=== PATIENT | male | born 1960 | race African-American/Black ===

== ENCOUNTER 2021-05-27 19:40 | Inpatient (IN) | payer BC ==
[2021-05-27 19:56] LABS: #Eosinphils 0.4 thou/uL (0.0-0.7); #Lymphocytes 1.9 thou/uL (1.20-3.40); #Monocytes 0.9 thou/uL (0.11-0.59); #Neutrophils 9.8 thou/uL (1.40-6.50); %Basophils 0.3 % (0.0-1.0); %Eosinophils 3.3 % (0.0-10.0); %Lymphocytes 14.3 % (21.0-51.0); %Monocytes 6.9 % (0.0-10.0); %Neutrophils 75.3 % (42.0-75.0); Mean Corpuscular Hemoglobin 30.5 pg (27.0-31.0); Mean Corpuscular Volume 92.7 fL (78.0-98.0); Mean Platelet Volume 7.6 fL (7.4-10.4); Platelet Count 277 thou/uL (130-400); RBC Distribution Width 13.8 % (11.5-14.5); Red Blood Cell (RBC) Count 5.23 mill/uL (4.70-6.10)
[2021-05-27 20:10] LABS: INR-International Normal Ratio 0.9; PTT 25.5 sec (22.9-36.1); Prothrombin Time 12.3 sec (12.0-14.7)
[2021-05-27 20:19] LABS: ALT (SGPT) 24 U/L (8-55); AST (SGOT) 22 U/L (5-34); Albumin 3.7 g/dL (3.4-4.8); Alkaline Phosphatase 39 U/L (40-110); Anion Gap 17 mmol/L (10-20); BUN (Urea Nitrogen) 34 mg/dL (8.4-25.7); Bilirubin, Total 0.4 mg/dL (0.2-1.2); CK (CPK) 442 U/L (30-200); Calc. Creatinine Clearance 0 mL/min (70-130); Calcium 9.1 mg/dL (7.8-10.44); Carbon Dioxide 21 mmol/L (23-31); Chloride 100 mmol/L (98-107); Globulin 3.4 g/dL (2.4-3.5); Glucose 276 mg/dL (80-115); Potassium 3.9 mmol/L (3.5-5.1); Protein, Total 7.1 g/dL (5.8-8.1); Sodium 134 mmol/L (136-145)
[2021-05-27] MEDS ORDERED: Aspirin 300 MG Suppository ONE (20:35)
[2021-05-27 23:16] LABS: Troponin I 0.043 ng/mL (< 0.028)
[2021-05-27] MEDS ORDERED: Ondansetron ODT 4 MG TAB PO PRN (23:33)
[2021-05-27] MEDS ORDERED: Ondansetron PF 4 MG/2 ML Vial IVP PRN (23:33)
[2021-05-27] MEDS ORDERED: Acetaminophen 650 MG Suppository PR PRN (23:33)
[2021-05-27] MEDS ORDERED: Dextrose 5% in Water 1,000 ML IV PRN (23:34)
[2021-05-27] MEDS ORDERED: Dextrose 50% Abboject 50 ML SYRINGE SLOW IVP PRN (23:34)
[2021-05-27] MEDS ORDERED: Pharmacy to Dose UNASYN IVPB PRN (23:39)
[2021-05-27] MEDS ORDERED: hydrALAZINE 20 MG/ML VIAL SLOW IVP PRN (23:40)
[2021-05-27] MEDS ORDERED: Pantoprazole 40 MG VIAL IVP SCH (23:59)
[2021-05-28] MEDS ORDERED: Enoxaparin Sodium 30 MG/0.3 ML SYRINGE SC SCH ×2 (00:30→21:00)
[2021-05-28] MEDS: Sodium Chloride 0.9% 1,000 ML IV SCH ×2 (01:04→10:06)
[2021-05-28] MEDS: Ampicillin/Sulbactam 3 GM in Sodium Chloride 0.9% 100 ML IVPB SCH ×2 (01:05→14:56)
[2021-05-28 01:25] LABS: CKMB 4.5 ng/mL (0-6.6)
[2021-05-28 02:14] LABS: #Eosinphils 0.5 thou/uL (0.0-0.7); #Lymphocytes 1.9 thou/uL (1.20-3.40); #Monocytes 0.9 thou/uL (0.11-0.59); #Neutrophils 8.9 thou/uL (1.40-6.50); %Basophils 0.4 % (0.0-1.0); %Eosinophils 3.7 % (0.0-10.0); %Lymphocytes 15.8 % (21.0-51.0); %Monocytes 7.4 % (0.0-10.0); %Neutrophils 72.7 % (42.0-75.0); Hemoglobin 15.7 g/dL (14.0-18.0); Mean Corpuscular HGB CONC 32.7 g/dL (32.0-36.0); Mean Corpuscular Hemoglobin 30.4 pg (27.0-31.0); Mean Corpuscular Volume 92.8 fL (78.0-98.0); Mean Platelet Volume 7.6 fL (7.4-10.4); Platelet Count 278 thou/uL (130-400); RBC Distribution Width 13.7 % (11.5-14.5); Red Blood Cell (RBC) Count 5.16 mill/uL (4.70-6.10); White Blood Cell (WBC) Count 12.3 thou/uL (4.8-10.8)
[2021-05-28 02:51] LABS: Anion Gap 16 mmol/L (10-20); BUN (Urea Nitrogen) 31 mg/dL (8.4-25.7); Calc. Creatinine Clearance 43 mL/min (70-130); Calcium 9.2 mg/dL (7.8-10.44); Carbon Dioxide 24 mmol/L (23-31); Cardiac Risk 7.6 (Less than 4.5); Chloride 101 mmol/L (98-107); Cholesterol 243 mg/dl (< 200 Desired); Glucose 215 mg/dL (80-115); HDL Cholesterol 32 mg/dL (>60 Neg Risk); Magnesium 2.2 mg/dL (1.6-2.6); Potassium 3.5 mmol/L (3.5-5.1); Sodium 137 mmol/L (136-145); Triglycerides 561 mg/dL (Less than 150)
[2021-05-28] MEDS: Aspirin 300 MG Suppository PR SCH (08:22)
[2021-05-28] MEDS ORDERED: Artificial Tear Sol 15 ML BOT EA EYE PRN (09:03)
[2021-05-28] MEDS ORDERED: Lorazepam 2 MG/ML VIAL SLOW IVP SCH (09:15)
[2021-05-28] MEDS: Pantoprazole 40 MG VIAL IVP SCH ×2 (09:24→20:39)
[2021-05-28 14:28] LABS: SARS-CoV-2 PCR by NAA Not Detected (NotDetected)
[2021-05-28] MEDS ORDERED: Ampicillin/Sulbactam 1.5 GM in Sodium Chloride 0.9% 100 ML IVPB SCH (21:00)
[2021-05-29] MEDS: Ampicillin/Sulbactam 3 GM in Sodium Chloride 0.9% 100 ML IVPB SCH ×3 (00:53→21:27)
[2021-05-29] MEDS: Sodium Chloride 0.9% 1,000 ML IV SCH (05:22)
[2021-05-29 05:40] LABS: #Basophils 0.1 thou/uL (0.0-0.2); #Eosinphils 0.2 thou/uL (0.0-0.7); #Lymphocytes 1.6 thou/uL (1.20-3.40); #Monocytes 0.8 thou/uL (0.11-0.59); %Basophils 0.6 % (0.0-1.0); %Eosinophils 1.6 % (0.0-10.0); %Lymphocytes 12.4 % (21.0-51.0); %Monocytes 6.4 % (0.0-10.0); Hemoglobin 16.4 g/dL (14.0-18.0); Mean Corpuscular HGB CONC 33.6 g/dL (32.0-36.0); Mean Corpuscular Hemoglobin 31.7 pg (27.0-31.0); Mean Corpuscular Volume 94.2 fL (78.0-98.0); Mean Platelet Volume 7.5 fL (7.4-10.4); Platelet Count 287 thou/uL (130-400); Red Blood Cell (RBC) Count 5.19 mill/uL (4.70-6.10); White Blood Cell (WBC) Count 12.7 thou/uL (4.8-10.8)
[2021-05-29 06:03] LABS: Anion Gap 22 mmol/L (10-20); BUN (Urea Nitrogen) 29 mg/dL (8.4-25.7); Calc. Creatinine Clearance 42 mL/min (70-130); Calcium 9.3 mg/dL (7.8-10.44); Carbon Dioxide 18 mmol/L (23-31); Chloride 106 mmol/L (98-107); Glucose 197 mg/dL (80-115); Potassium 3.9 mmol/L (3.5-5.1)
[2021-05-29 06:12] LABS: Sodium 142 mmol/L (136-145)
[2021-05-29] MEDS: HumaLOG 300 UNITS/3 ML VIAL SC PRN (06:21)
[2021-05-29] MEDS: Aspirin 300 MG Suppository PR SCH (09:51)
[2021-05-29] MEDS: Pantoprazole 40 MG VIAL IVP SCH ×2 (09:52→21:29)
[2021-05-29] MEDS ORDERED: Midazolam HCl 2 mg/2 ml Vial ONE (11:21)
[2021-05-29] MEDS ORDERED: Fentanyl 100 MCG/2 ML VIAL ONE (11:21)
[2021-05-29] MEDS ORDERED: Ketamine 50 MG/ML (10ML VIAL) ONE (13:27)
[2021-05-29] MEDS ORDERED: Rocuronium Bromide 10 MG/ML (10ML VIAL) ONE (13:49)
[2021-05-29] MEDS ORDERED: PROPOFOL 200 MG/20 ML VIAL ONE (13:49)
[2021-05-29] MEDS ORDERED: Lidocaine 1% PF 5 ML VIAL ONE (13:49)
[2021-05-29] MEDS ORDERED: Glycopyrrolate 0.2 MG/ML 5 ML SYRINGE ONE (13:49)
[2021-05-29 15:04] VITALS: BMI 32.1
[2021-05-29] MEDS: Enoxaparin Sodium 40 MG/0.4 ML SYRINGE SC SCH (21:28)
[2021-05-30] MEDS: Ampicillin/Sulbactam 3 GM in Sodium Chloride 0.9% 100 ML IVPB SCH ×3 (00:03→15:08)
[2021-05-30] MEDS: Sodium Chloride 0.9% 1,000 ML IV SCH (04:07)
[2021-05-30] MEDS: HumaLOG 300 UNITS/3 ML VIAL SC PRN ×4 (05:45→22:00)
[2021-05-30] MEDS: Aspirin 325 MG TAB PER TUBE SCH (09:42)
[2021-05-30] MEDS: Pantoprazole 40 MG VIAL IVP SCH ×2 (09:42→22:42)
[2021-05-30] MEDS: hydrALAZINE 20 MG/ML VIAL SLOW IVP PRN (12:42)
[2021-05-30] MEDS ORDERED: Atorvastatin Calcium 40 MG TAB PER TUBE SCH (14:15)
[2021-05-30] MEDS: cloNIDine 0.1 MG TAB PER TUBE PRN ×2 (15:39→22:13)
[2021-05-30] MEDS ORDERED: Acetaminophen 650 MG/20.3 ML UDCUP PER TUBE PRN (15:47)
[2021-05-30] MEDS ORDERED: Labetalol HCl 100 MG/20 ML VIAL SLOW IVP SCH (17:00)
[2021-05-30] MEDS: Enoxaparin Sodium 40 MG/0.4 ML SYRINGE SC SCH (22:01)
[2021-05-30] MEDS: Atorvastatin Calcium 10 MG TAB PER TUBE SCH (22:01)
[2021-05-31] MEDS: Sodium Chloride 0.9% 1,000 ML IV SCH (03:47)
[2021-05-31] MEDS: hydrALAZINE 20 MG/ML VIAL SLOW IVP PRN ×2 (04:44→15:50)
[2021-05-31 05:34] LABS: #Basophils 0.1 thou/uL (0.0-0.2); #Eosinphils 0.2 thou/uL (0.0-0.7); #Lymphocytes 1.3 thou/uL (1.20-3.40); #Monocytes 0.8 thou/uL (0.11-0.59); #Neutrophils 9.6 thou/uL (1.40-6.50); %Basophils 0.5 % (0.0-1.0); %Lymphocytes 10.8 % (21.0-51.0); %Monocytes 6.9 % (0.0-10.0); %Neutrophils 79.7 % (42.0-75.0); Hemoglobin 14.2 g/dL (14.0-18.0); Mean Corpuscular HGB CONC 32.4 g/dL (32.0-36.0); Mean Corpuscular Hemoglobin 30.8 pg (27.0-31.0); Mean Platelet Volume 7.4 fL (7.4-10.4); Platelet Count 266 thou/uL (130-400); RBC Distribution Width 13.9 % (11.5-14.5); Red Blood Cell (RBC) Count 4.63 mill/uL (4.70-6.10); White Blood Cell (WBC) Count 12.1 thou/uL (4.8-10.8)
[2021-05-31 05:57] LABS: Anion Gap 12 mmol/L (10-20); BUN (Urea Nitrogen) 20 mg/dL (8.4-25.7); Calc. Creatinine Clearance 47 mL/min (70-130); Calcium 9.4 mg/dL (7.8-10.44); Carbon Dioxide 24 mmol/L (23-31); Chloride 105 mmol/L (98-107); Glucose 322 mg/dL (80-115); Potassium 3.5 mmol/L (3.5-5.1); Sodium 137 mmol/L (136-145)
[2021-05-31] MEDS: Levothyroxine Sodium 112 MCG TAB PER TUBE SCH (05:59)
[2021-05-31] MEDS: HumaLOG 300 UNITS/3 ML VIAL SC PRN ×2 (06:12→18:36)
[2021-05-31] MEDS: Cholecalciferol 1,000 UNITS (25 MCG) TAB PER TUBE SCH (10:22)
[2021-05-31] MEDS: Fenofibrate Nanocrystallized 145 MG TAB PER TUBE SCH (10:22)
[2021-05-31] MEDS: Floranex 1 GM Packet PER TUBE SCH (10:22)
[2021-05-31] MEDS: Pantoprazole 40 MG VIAL IVP SCH ×2 (10:22→22:51)
[2021-05-31] MEDS: Aspirin 325 MG TAB PER TUBE SCH (10:22)
[2021-05-31] MEDS: Fish Oil 1,000 MG CAP PO SCH (10:24)
[2021-05-31] MEDS: Losartan 25 MG TAB PER TUBE SCH (10:24)
[2021-05-31] MEDS: Chlorthalidone 25 MG TAB PER TUBE SCH (10:25)
[2021-05-31] MEDS: Amlodipine 10 MG TAB PER TUBE SCH ×2 (10:26→11:21)
[2021-05-31] MEDS: cloNIDine 0.1 MG TAB PER TUBE PRN (15:50)
[2021-05-31] MEDS: hydrALAZINE 25 MG TAB PER TUBE SCH ×2 (18:33→22:50)
[2021-05-31] MEDS: Metoprolol Tartrate 25 MG TAB PER TUBE SCH (22:50)
[2021-05-31] MEDS: Atorvastatin Calcium 10 MG TAB PER TUBE SCH (22:50)
[2021-05-31] MEDS: Enoxaparin Sodium 40 MG/0.4 ML SYRINGE SC SCH (22:50)
[2021-06-01] MEDS: HumaLOG 300 UNITS/3 ML VIAL SC PRN ×2 (02:52→16:44)
[2021-06-01 05:07] LABS: #Basophils 0.1 thou/uL (0.0-0.2); #Eosinphils 0.6 thou/uL (0.0-0.7); #Lymphocytes 1.2 thou/uL (1.20-3.40); #Monocytes 0.9 thou/uL (0.11-0.59); #Neutrophils 9.6 thou/uL (1.40-6.50); %Basophils 0.4 % (0.0-1.0); %Eosinophils 5.1 % (0.0-10.0); %Lymphocytes 9.7 % (21.0-51.0); %Monocytes 7.4 % (0.0-10.0); %Neutrophils 77.5 % (42.0-75.0); Hemoglobin 14.1 g/dL (14.0-18.0); Mean Corpuscular HGB CONC 33.4 g/dL (32.0-36.0); Mean Corpuscular Hemoglobin 31.4 pg (27.0-31.0); Mean Platelet Volume 7.9 fL (7.4-10.4); Platelet Count 245 thou/uL (130-400); RBC Distribution Width 13.5 % (11.5-14.5); White Blood Cell (WBC) Count 12.4 thou/uL (4.8-10.8)
[2021-06-01] MEDS: Levothyroxine Sodium 112 MCG TAB PER TUBE SCH (05:19)
[2021-06-01 05:28] LABS: Anion Gap 11 mmol/L (10-20); BUN (Urea Nitrogen) 17 mg/dL (8.4-25.7); Calc. Creatinine Clearance 52 mL/min (70-130); Calcium 9.6 mg/dL (7.8-10.44); Carbon Dioxide 27 mmol/L (23-31); Chloride 103 mmol/L (98-107); Glucose 217 mg/dL (80-115); Potassium 3.6 mmol/L (3.5-5.1); Sodium 137 mmol/L (136-145)
[2021-06-01] MEDS: Floranex 1 GM Packet PER TUBE SCH (08:54)
[2021-06-01] MEDS: Fenofibrate Nanocrystallized 145 MG TAB PER TUBE SCH (08:55)
[2021-06-01] MEDS: hydrALAZINE 25 MG TAB PER TUBE SCH ×3 (08:55→16:40)
[2021-06-01] MEDS: Aspirin 325 MG TAB PER TUBE SCH (08:55)
[2021-06-01] MEDS: Losartan 25 MG TAB PER TUBE SCH (08:55)
[2021-06-01] MEDS: Fish Oil 1,000 MG CAP PO SCH (08:56)
[2021-06-01] MEDS: Metoprolol Tartrate 25 MG TAB PER TUBE SCH (08:56)
[2021-06-01] MEDS: Cholecalciferol 1,000 UNITS (25 MCG) TAB PER TUBE SCH (08:56)
[2021-06-01] MEDS: Chlorthalidone 25 MG TAB PER TUBE SCH (09:24)
[2021-06-01] MEDS: Pantoprazole 40 MG VIAL IVP SCH (10:52)
[2021-06-01] MEDS ORDERED: Fentanyl 100 MCG/2 ML VIAL ONE (13:17)
[2021-06-01] MEDS ORDERED: Ketamine 50 MG/ML (10ML VIAL) ONE (13:33)
[2021-06-01] MEDS ORDERED: Midazolam HCl 5 mg/5 ml Vial ONE (13:33)
[2021-06-01] MEDS ORDERED: Dexmedetomidine 200 MCG/2 ML VIAL ONE (13:34)
[2021-06-01 15:46] VITALS: TEMP 98.9
[2021-06-01 17:17] VITALS: BP 184/90
== END 2021-06-01 18:45 | disposition home or self-care (01) | DRG 65 ==
LOC: ERS 19:40 → NEURO 21:23 → OBSVTOIN 05-29 12:36
PROVIDERS: ADMIT Internal Medicine; ATTEND Internal Medicine
PROC: 0DH63UZ Insertion of Feeding Device into Stomach, Percutaneous Approach (ICD-10-PCS; principal; 2021-05-29)
DX: I63.9 Cerebral infarction, unspecified (principal); G81.91 Hemiplegia, unspecified affecting right dominant side; N17.9 Acute kidney failure, unspecified; E87.1 Hypo-osmolality and hyponatremia; E78.5 Hyperlipidemia, unspecified; E03.9 Hypothyroidism, unspecified; E11.21 Type 2 diabetes mellitus with diabetic nephropathy; R29.810 Facial weakness; N18.30 Chronic kidney disease, stage 3 unspecified; I65.02 Occlusion and stenosis of left vertebral artery; Z20.822 Contact with and (suspected) exposure to COVID-19; I12.9 Hypertensive chronic kidney disease with stage 1 through stage 4 chronic kidney disease, or unspecified chronic kidney disease; G47.33 Obstructive sleep apnea (adult) (pediatric); E66.9 Obesity, unspecified; I48.91 Unspecified atrial fibrillation; I16.0 Hypertensive urgency; R13.12 Dysphagia, oropharyngeal phase; E11.69 Type 2 diabetes mellitus with other specified complication; Z68.32 Body mass index [BMI] 32.0-32.9, adult; Z79.899 Other long term (current) drug therapy; Z90.49 Acquired absence of other specified parts of digestive tract; Z87.891 Personal history of nicotine dependence
CPT/HCPCS: 36415; 36416; 70450; 70551; 74230; 76770; 80048; 80053; 80061; 82550; 82553; 83036; 83735; 84484; 85025; 85610; 85730; 93005; 93306; 93880; 96374; 96375; 96376; C9113; G0378; J0295; J0360; J1650; J1815; J2060; J2250; J2704; J3010; J3490; U0003; U0005